=== PATIENT | male | born 1990 | race African-American/Black ===

== ENCOUNTER 2016-10-07 09:24 | Emergency (ER) | payer SELFPAY ==
[~2016-10-07] VITALS: Ht 170.2 cm; Wt 60.0 kg
[2016-10-07 09:26] VITALS: BP 118/71; PULSE 80; RESP 16; TEMP 98.2; O2SAT 98
--- NOTE | 2016-10-07 10:23 | PD ---
HPI Chief Complaint: Injury Time Seen by Provider: 10:05 Travel History International Travel<30 days: No Contact w/Intl Traveler<30days: No Traveled to known affect area: No History of Present Illness HPI 25-year-old Afro-[place]er male presents the emergency department with right sided shoulder which has developed over the last 3 days. 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 The pain is getting the point where his limited range of motion in the right shoulder. He denies weakness or numbness or tingling. Is located in the posterior and lateral shoulder. Patient states no previous shoulder injury in this area. Patient states the pain is 7 out of 10. States it is worse with movement and pressure. He has no known drug allergies. PFSH Past Medical History Asthma: No Autoimmune Disease: No Blood Disorders: No Heart Rhythm Problems: No Cardiovascular Problems: No Chest Pain: No Cystic Fibrosis: No Diminished Hearing: No Genitourinary: No Headaches: No Hypertension: No Musculoskeletal: No Neurologic: No Seizures: No Sickle Cell Disease: No Sleep Apnea: No Past Surgical History Abdominal Surgery: No Cardiac Surgery: No Ear Surgery: No Endocrine Surgery: No Eye Surgery: No Genitourinary Surgery: No Gynecologic Surgery: No Neurologic Surgery: No Oral Surgery: No Thoracic Surgery: No Social History Alcohol Use: No Tobacco Use: Yes Substance Use: No Allergies-Medications (Allergen,Severity, Reaction): Coded Allergies: No Known Allergies (Verified Allergy, Severe, 06/29/04) Reported Meds & Prescriptions Reported Meds & Active Scripts Active Ibuprofen 800 Mg Tab 800 Mg PO Q8H PRN Non-Aspirin Pain Relief ES (Acetaminophen) 500 Mg Tab 1,000 Mg PO Q6HR PRN Review of Systems Except as stated in HPI: all other systems reviewed are Neg General / Constitutional: No: Fever Eyes: No: Visual changes HENT: No: Headaches Cardiovascular: No: Chest Pain or Discomfort Respiratory: No: Shortness of Breath Gastrointestinal: No: Abdominal Pain Genitourinary: No: Dysuria Musculoskeletal: Positive: Myalgias, Limited ROM, Pain Skin: No Rash Neurologic: No: Weakness Psychiatric: No: Depression Endocrine: No: Polydipsia Hematologic/Lymphatic: No: Easy Bruising Physical Exam Narrative GENERAL: Patient appears no acute distress. SKIN: Warm and dry. No color. Normal turgor. No rash. HEAD: Atraumatic. Normocephalic. EYES: Pupils equal and round. No scleral icterus. No injection or drainage. ENT: No nasal bleeding or discharge. Mucous membranes pink and moist. Pharynx is clear. Airway is patent. NECK: Trachea midline. No JVD. CARDIOVASCULAR: Regular rate and rhythm. RESPIRATORY: No accessory muscle use. Clear to auscultation. Breath sounds equal bilaterally. MUSCULOSKELETAL: Extremities without clubbing, cyanosis, or edema. Patient is tenderness with palpation of the right posterior and lateral deltoid region as well as with all ranges of motion of the right shoulder, however no obvious weakness or loss of function. Fusions noted. No deformities are noted. NEUROLOGICAL: Awake and alert. No obvious cranial nerve deficits. Motor grossly within normal limits. Five out of 5 muscle strength in the arms and legs. Normal speech. PSYCHIATRIC: Appropriate mood and affect; insight and judgment normal. Data Data Last Documented VS Vital Signs Date Time Temp Pulse Resp B/P Pulse Ox O2 Delivery O2 Flow Rate FiO2 10/07/16 09:26 98.2 80 16 118/71 98 MDM Medical Decision Making Medical Screen Exam Complete: Yes Emergency Medical Condition: Yes Differential Diagnosis Right shoulder strain. Rotator cuff strain. Rotator cuff tendinitis. Shoulder bursitis. Narrative Course Patient is medically stable at time of exam. Radiographic imaging is not felt warranted at this time based on the history and physical. Patient will be treated with ibuprofen 800 mg 3 times daily with food. Patient also was given acetaminophen 500 mg 2 tabs every 6 hours when necessary pain. Patient is to use Heat followed by ice frequently through the day. Work note is given with restrictions for the next week. Patient to follow-up with his primary care physician or return to the emergency department as needed. Diagnosis Primary Impression: Strain of right shoulder Qualified Code: S46.911A - Strain of right shoulder, initial encounter Referrals: [facility] Primary Care Physician Patient Instructions: Exercises for Internal and External Shoulder Rotation (ED ), Exercises for Shoulder Abduction and Adduction (ED), Exercises for Shoulder Flexion and Extension (ED), General Instructions Departure Forms: Work Release Enter return to work date: Oct 08, 2016 Special Instructions: No lifting greater than 20 pounds, no throwing. No Overhead lifting for the next 7 days. Additional Instructions: Radiographic imaging is not felt warranted at this time based on the history and physical. Patient will be treated with ibuprofen 800 mg 3 times daily with food. Patient also was given acetaminophen 500 mg 2 tabs every 6 hours when necessary pain. Patient is to use Heat followed by ice frequently through the day. Work note is given with restrictions for the next week. Patient to follow-up with his primary care physician or return to the emergency department as needed. Med/Other Pt SpecificInfo: Prescription(s) given Scripts Ibuprofen 800 Mg [id number] Mg PO Q8H PRN (Pain/Inflammation) #30 TAB Prov:Patricia Oswald DO 10/07/16 Acetaminophen (Non-Aspirin Pain Relief ES)500 Mg Tab1,000 Mg PO Q6HR PRN (PAIN) #60 TAB Prov:Patricia Oswald DO 10/07/16 Disposition: 01 DISCHARGE HOME Condition: Stable Darci Castro Oct 07, 2016 10:23
[2016-10-07] MEDS ORDERED: IBUP800T23 PO (10:24)
[2016-10-07] MEDS ORDERED: NON-500T13 PO (10:24)
== END 2016-10-07 10:46 | disposition home or self-care (01) ==
LOC: NEPD 09:24
DX: S46.911A Strain of unspecified muscle, fascia and tendon at shoulder and upper arm level, right arm, initial encounter (principal); X50.9XXA Other and unspecified overexertion or strenuous movements or postures, initial encounter; Z72.0 Tobacco use
CPT/HCPCS: 99283

== ENCOUNTER 2016-10-31 00:19 | Emergency (ER) | payer SELFPAY ==
[~2016-10-31] VITALS: Ht 170.2 cm; Wt 62.0 kg
[~2016-10-31 00:19] MED LIST: IBUP800T23 PO; NON-500T13 PO
[2016-10-31 00:23] VITALS: BP 137/85; PULSE 82; RESP 16; TEMP 98.6; O2SAT 99
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
[2016-10-31] MEDS ORDERED: TETANUS/DIPHTHERIA TOXOID ADULT 0.5 ML VIAL IM ONE (00:45)
[2016-10-31] MEDS ORDERED: LIDOCAINE 1%/EPINEPHrine 1:100,000 SOLN 20 ML VIAL INFIL ONE (00:45)
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
== END 2016-10-31 01:30 | disposition home or self-care (01) ==
LOC: NEPE 00:19
DX: S21.111A Laceration without foreign body of right front wall of thorax without penetration into thoracic cavity, initial encounter (principal); F17.200 Nicotine dependence, unspecified, uncomplicated; Z23 Encounter for immunization; W26.0XXA Contact with knife, initial encounter
CPT/HCPCS: 12002; 90471; 90714

== ENCOUNTER 2016-11-05 15:03 | Emergency (ER) | payer SELFPAY ==
[~2016-11-05] VITALS: Ht 167.6 cm; Wt 65.0 kg
[2016-11-05 15:07] VITALS: BP 121/77; PULSE 80; RESP 14; TEMP 98.2; O2SAT 99
--- NOTE | 2016-11-05 16:26 | PD ---
HPI Chief Complaint: GI Complaint Time Seen by Provider: 16:26 Travel History International Travel<30 days: No Contact w/Intl Traveler<30days: No Traveled to known affect area: No History of Present Illness HPI 26-year-old Afro-Swiss male resents with history of rectal a "lump" with occasional rectal bleeding. Patient states he treated with [id number] cream with improvement of the lump, patient had episode of bright red blood per rectum earlier today with bowel movement. No pain, no abdominal pain, no dizziness or weakness. No previous history of rectal bleeding in the past. She states seem to be getting better but then had episode of bleeding today which is why he came in today. Currently has no pain whatsoever. 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 Patient has no known drug allergies. PFSH Past Medical History Medical History: Denies Significant Hx Asthma: No Autoimmune Disease: No Blood Disorders: No Heart Rhythm Problems: No Cardiovascular Problems: No Chest Pain: No Cystic Fibrosis: No Diminished Hearing: No Gastrointestinal Disorders: No Genitourinary: No Headaches: No Hypertension: No Musculoskeletal: No Neurologic: No Seizures: No Sickle Cell Disease: No Sleep Apnea: No Past Surgical History Surgical History: No Previous Surgery Abdominal Surgery: No Cardiac Surgery: No Ear Surgery: No Endocrine Surgery: No Eye Surgery: No Genitourinary Surgery: No Gynecologic Surgery: No Neurologic Surgery: No Oral Surgery: No Thoracic Surgery: No Other Surgery: No Social History Alcohol Use: No Tobacco Use: Yes (1 ppd) Substance Use: Yes (THC daily) Allergies-Medications (Allergen,Severity, Reaction): Coded Allergies: No Known Allergies (Verified , 10/31/16) Reported Meds & Prescriptions Reported Meds & Active Scripts Active No Active Prescriptions or Reported Medications Review of Systems Except as stated in HPI: all other systems reviewed are Neg General / Constitutional: No: Fever Eyes: No: Visual changes HENT: No: Headaches Cardiovascular: No: Chest Pain or Discomfort Respiratory: No: Shortness of Breath Gastrointestinal: Positive: Other, No: Nausea, Vomiting, Diarrhea, Abdominal Pain, Hematochezia, Constipation Genitourinary: No: Dysuria Musculoskeletal: No: Pain Skin: No Rash Neurologic: No: Weakness Psychiatric: No: Depression Endocrine: No: Polydipsia Hematologic/Lymphatic: No: Easy Bruising Physical Exam Narrative GENERAL: Patient is in no acute distress. SKIN: Warm and dry. Normal color. Normal turgor. HEAD: Atraumatic. Normocephalic. EYES: Pupils equal and round. No scleral icterus. No injection or drainage. ENT: No nasal bleeding or discharge. Mucous membranes pink and moist. NECK: Trachea midline. No JVD. CARDIOVASCULAR: Regular rate and rhythm. RESPIRATORY: No accessory muscle use. Clear to auscultation. Breath sounds equal bilaterally. GASTROINTESTINAL: Abdomen soft, non-tender, nondistended. Hepatic and splenic margins not palpable. RECTAL: Patient is noted to have a skin tag at 6 caught position. There is no fissure. There is no rectal pain. There is no palpable internal hemorrhoid. There is no active bleeding. MUSCULOSKELETAL: Extremities without clubbing, cyanosis, or edema. No obvious deformities. NEUROLOGICAL: Awake and alert. No obvious cranial nerve deficits. Motor grossly within normal limits. Five out of 5 muscle strength in the arms and legs. Normal speech. PSYCHIATRIC: Appropriate mood and affect; insight and judgment normal. Data Data Last Documented VS Vital Signs Date Time Temp Pulse Resp B/P Pulse Ox O2 Delivery O2 Flow Rate FiO2 11/05/16 15:07 98.2 80 14 121/77 99 MDM Medical Decision Making Medical Screen Exam Complete: Yes Emergency Medical Condition: Yes Differential Diagnosis Internal hemorrhoid. External hemorrhoid. Rectal bleeding Narrative Course Patient is medically stable at time of exam. Patient is treated with Anusol rectal suppositories as directed twice a day. # 12. Toileting habits is are discussed as well as stool softeners. Patient to follow local primary care physician as discussed. She can return the emergency Department with worsening symptoms as needed. Diagnosis Primary Impression: Hemorrhoids Qualified Code: K64.9 - Hemorrhoids, unspecified hemorrhoid type Referrals: [facility] Patient Instructions: General Instructions, Hemorrhoids (ED) Additional Instructions: Patient is medically stable at time of exam. Patient is treated with Anusol rectal suppositories as directed twice a day. # 12. Toileting habits is are discussed as well as stool softeners. Patient to follow local primary care physician as discussed. She can return the emergency Department with worsening symptoms as needed. Med/Other Pt SpecificInfo: Prescription(s) given Scripts No Active Prescriptions or Reported Meds Disposition: 01 DISCHARGE HOME Condition: Stable Gloria,Darci F. PA Nov 05, 2016 16:26
[2016-11-05] MEDS ORDERED: ANUC25SU RECTAL (16:44)
== END 2016-11-05 16:47 | disposition home or self-care (01) ==
LOC: NEPD 15:03
DX: K64.9 Unspecified hemorrhoids (principal)
CPT/HCPCS: 99282

== ENCOUNTER 2017-07-31 12:35 | Inpatient (IN) | payer OTHER ==
[~2017-07-31] VITALS: Ht 170.2 cm; Wt 63.5 kg
[~2017-07-31 12:35] MED LIST changes: +ANUC25SU RECTAL; -IBUP800T23 PO; -NON-500T13 PO
[2017-07-31 16:00] VITALS: BP 111/66; PULSE 73; RESP 18; TEMP 98.2; O2SAT 100
[2017-07-31] MEDS: LACTATED RINGER'S 1000 ML INJ 1,000 ML IV SCH (16:07)
[2017-07-31] MEDS ORDERED: diphenhydrAMINE HCL 25 MG CAP PO PRN (16:15)
[2017-07-31] MEDS ORDERED: Post-op Orders (for Pharmacy) XX ONE (16:15)
[2017-07-31] MEDS ORDERED: ACETAMINOPHEN/HYDROcodone 325 MG/10 MG TAB PO ONE (16:15)
[2017-07-31] MEDS ORDERED: KETOROLAC TROMETHAMINE 30 MG/ML (IVP) VIAL IV PUSH ONE (16:15)
[2017-07-31] MEDS ORDERED: HYDROmorphone HCL PF 2 MG/ML VIAL IV ONE (16:15)
[2017-07-31] MEDS: KETOROLAC TROMETHAMINE 30 MG/ML (IVP) VIAL IVP SCH ×2 (16:50→23:54)
[2017-07-31 20:00] VITALS: BP 132/76; PULSE 75; RESP 18; TEMP 98.6; O2SAT 99
[2017-07-31] MEDS: ACETAMINOPHEN/HYDROcodone 325 MG/10 MG TAB PO PRN ×2 (20:40→23:54)
[2017-07-31] MEDS: DOCUSATE SODIUM 50 MG/SENNA 8.6 MG TAB PO SCH (20:40)
[2017-07-31] MEDS ORDERED: LACTATED RINGER'S 1000 ML IV PRN (21:30)
[2017-07-31] MEDS ORDERED: SODIUM CHLORID 0.9% 500 ML IV PRN (21:30)
[2017-07-31] MEDS ORDERED: POVIDONE IODINE 5% (ANTISEPSIS KIT) 4 APPLICATIONS EACH NARE PRN (21:45)
[2017-07-31] MEDS ORDERED: METOPROLOL TARTRATE 25 MG TAB PO PRN (21:45)
[2017-07-31] MEDS: HYDROmorphone HCL PF 2 MG/ML VIAL IV PUSH PRN (21:45)
[2017-07-31] MEDS ORDERED: CHLORHEXIDINE GLUCONATE 2 % 1 PACK (2 CLOTHS) TOPICAL PRN (21:45)
[2017-08-01] VITALS: BP 118/73; PULSE 60; RESP 18; TEMP 98.3; O2SAT 99
[2017-08-01] MEDS: LACTATED RINGER'S 1000 ML INJ 1,000 ML IV SCH ×3 (02:19→20:40)
[2017-08-01] MEDS: ACETAMINOPHEN/HYDROcodone 325 MG/10 MG TAB PO PRN ×3 (03:53→20:38)
[2017-08-01 04:00] VITALS: BP 149/82; PULSE 70; RESP 18; TEMP 98.3; O2SAT 100
[2017-08-01] MEDS: KETOROLAC TROMETHAMINE 30 MG/ML (IVP) VIAL IVP SCH ×4 (05:42→23:12)
[2017-08-01] MEDS: HYDROmorphone HCL PF 2 MG/ML VIAL IV PUSH PRN ×3 (05:42→21:48)
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
[2017-08-01 07:03] LABS: HEMATOCRIT 30.5 % (39.0-51.0); HEMOGLOBIN 10.5 GM/DL (13.0-17.0)
[2017-08-01 08:00] VITALS: BP 117/80; PULSE 83; RESP 18; TEMP 98.5; O2SAT 100
[2017-08-01] MEDS: DOCUSATE SODIUM 50 MG/SENNA 8.6 MG TAB PO SCH ×2 (09:25→20:38)
[2017-08-01 12:00] VITALS: BP 138/93; PULSE 74; RESP 18; TEMP 98.5; O2SAT 100
[2017-08-01 16:00] VITALS: BP 142/91; PULSE 65; RESP 18; TEMP 97.9; O2SAT 99
[2017-08-01] MEDS: ONDANSETRON HCL 4 MG/2 ML VIAL IVP PRN (18:34)
[2017-08-01 19:50] VITALS: BP 129/86; PULSE 67; RESP 18; TEMP 98.4; O2SAT 97
[2017-08-02] VITALS: BP 123/72; PULSE 70; RESP 18; TEMP 98; O2SAT 99
[2017-08-02] MEDS: ACETAMINOPHEN/HYDROcodone 325 MG/10 MG TAB PO PRN ×5 (00:24→16:49)
[2017-08-02] MEDS ORDERED: LACTULOSE SYRUP 20 GM/30 ML CUP PO PRN (02:00)
[2017-08-02] MEDS ORDERED: BISACODYL 10 MG SUPP RECTAL PRN (02:00)
[2017-08-02] MEDS ORDERED: SENNOSIDES 8.6 MG TAB PO PRN (02:00)
[2017-08-02 04:00] VITALS: BP 132/92; PULSE 81; RESP 18; TEMP 98.6; O2SAT 99
[2017-08-02] MEDS: HYDROmorphone HCL PF 2 MG/ML VIAL IV PUSH PRN ×4 (05:15→21:40)
[2017-08-02] MEDS: ONDANSETRON HCL 4 MG/2 ML VIAL IVP PRN ×4 (05:16→21:39)
[2017-08-02 08:14] VITALS: BP 123/72; PULSE 83; RESP 18; TEMP 98.5; O2SAT 99
[2017-08-02] MEDS: MAGNESIUM HYDROXIDE SUSP 30 ML CUP PO SCH ×2 (08:21→21:40)
[2017-08-02] MEDS: DOCUSATE SODIUM 50 MG/SENNA 8.6 MG TAB PO SCH ×2 (08:21→21:40)
--- NOTE | 2017-08-02 11:19 | PD.ORT.PN ---
Subjective Subjective Remarks Resting comfortably with no new complaint Objective Vitals Vital Signs Date Time Temp Pulse Resp B/P (MAP) Pulse Ox O2 Delivery O2 Flow Rate FiO2 08/02/17 10:10 18 08/02/17 09:21 18 08/02/17 08:14 98.5 83 18 123/72 (89) 99 08/02/17 04:00 98.6 81 18 132/92 (105) 99 08/02/17 00:00 98.0 70 18 123/72 (89) 99 08/01/17 19:50 98.4 67 18 129/86 (100) 97 08/01/17 16:00 97.9 65 18 142/91 (108) 99 08/01/17 12:40 20 08/01/17 12:00 98.5 74 18 138/93 (108) 100 I/O 08/01/17 08/01/17 08/01/17 08/02/17 08/02/17 08/02/17 07:00 15:00 23:00 07:00 15:00 23:00 Intake Total 300 ml 960 ml 200 ml Balance 300 ml 960 ml 200 ml Intake Oral 300 ml 960 ml 200 ml # Voids 2 3 # Bowel Movements 0 0 Result Diagram: 08/01/17 0635 Objective Remarks RLE: 2+ swelling of lower leg. compartments soft. External fixation in place. pin sites clean. NVI distally with good motion of toes and ankle. Assessment & Plan Assessment and Plan 1) Right Tibial Plateau Fx s/p exfix POD 2 -NWB -elevate -ice -pin care BID -toradol N.p.o. after midnight. We will plan on possible surgery tomorrow if swelling is continuing to improve Brant Horne Jr. August 02, 2017 11:19
[2017-08-02 11:43] VITALS: BP 135/71; PULSE 63; RESP 18; TEMP 98.8; O2SAT 98
[2017-08-02 16:00] VITALS: BP 127/84; PULSE 100; RESP 18; TEMP 98.4; O2SAT 100
[2017-08-02] MEDS: LACTATED RINGER'S 1000 ML INJ 1,000 ML IV SCH (16:00)
[2017-08-02 20:15] VITALS: BP 125/77; PULSE 65; RESP 16; TEMP 98.6; O2SAT 99
[2017-08-03 00:15] VITALS: BP 117/68; PULSE 72; RESP 16; TEMP 98.3; O2SAT 100
[2017-08-03] MEDS: ONDANSETRON HCL 4 MG/2 ML VIAL IVP PRN ×3 (01:10→20:51)
[2017-08-03] MEDS: ACETAMINOPHEN/HYDROcodone 325 MG/10 MG TAB PO PRN ×3 (01:11→16:47)
[2017-08-03 04:50] VITALS: BP 134/76; PULSE 72; RESP 16; TEMP 98.2; O2SAT 97
[2017-08-03] MEDS: HYDROmorphone HCL PF 2 MG/ML VIAL IV PUSH PRN ×3 (04:54→20:52)
[2017-08-03] MEDS: LACTATED RINGER'S 1000 ML INJ 1,000 ML IV SCH ×2 (06:37→16:00)
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
[2017-08-03] MEDS ORDERED: XARE10TA PO (06:53)
[2017-08-03] MEDS ORDERED: HYDR-3583 PO (06:53)
[2017-08-03] MEDS ORDERED: WALKER/ADULT/FO1 MIS (06:53)
[2017-08-03 06:55] LABS: AUTOMATED NEUTROPHIL # 3.1 TH/MM3 (1.8-7.7); BASOPHIL % 0.6 % (0.0-2.0); EOSINOPHIL # 0.5 TH/MM3 (0-0.4); HEMOGLOBIN 11.3 GM/DL (13.0-17.0); LYMPH % 32.1 % (9.0-44.0); LYMPHOCYTE # 2.1 TH/MM3 (1.0-4.8); MEAN CELL VOLUME 89.9 FL (80.0-100.0); MEAN CORPUSCULAR HEMOGLOBIN 30.7 PG (27.0-34.0); MEAN CORPUSCULAR HGB CONC 34.2 % (32.0-36.0); MEAN PLATELET VOLUME 8.4 FL (7.0-11.0); MONO % 11.3 % (0.0-8.0); MONOCYTE # 0.7 TH/MM3 (0-0.9); PLATELET COUNT 193 TH/MM3 (150-450); RED BLOOD COUNT 3.67 MIL/MM3 (4.50-5.90); RED CELL DISTRIBUTION WIDTH 13.7 % (11.6-17.2); WHITE BLOOD COUNT 6.4 TH/MM3 (4.0-11.0)
[2017-08-03 07:04] LABS: INTERNATIONAL NORMALIZED RATIO 1.1 RATIO; PROTHROMBIN TIME - PATIENT 11.3 SEC (9.8-11.6)
[2017-08-03 07:16] LABS: BICARBONATE 30.2 MEQ/L (21.0-32.0); CREATININE 1.1 MG/DL (0.60-1.30)
[2017-08-03] MEDS: MAGNESIUM HYDROXIDE SUSP 30 ML CUP PO SCH ×2 (07:56→22:47)
[2017-08-03] MEDS: DOCUSATE SODIUM 50 MG/SENNA 8.6 MG TAB PO SCH ×2 (07:57→22:47)
[2017-08-03 08:00] VITALS: BP 133/75; PULSE 65; RESP 16; TEMP 98.5; O2SAT 99
[2017-08-03] MEDS ORDERED: ceFAZolin INJ 1,000 MG VIAL ONE (11:54)
[2017-08-03] MEDS ORDERED: VANCOMYCIN HCL 1000 MG VIAL ONE (11:54)
[2017-08-03] MEDS ORDERED: GENTAMICIN SULFATE 80 MG/2 ML VIAL ONE (11:54)
[2017-08-03] MEDS ORDERED: LIDOCAINE HCL 1% PF 5 ML SYRINGE OTHER ONE (13:11)
[2017-08-03] MEDS ORDERED: PHENYLEPH/NS 1000 MCG/10 ML SYR IV ONE (13:11)
[2017-08-03] MEDS ORDERED: DEXAMETHASONE SOD PHOS 4 MG/ML VIAL IV ONE (13:11)
[2017-08-03] MEDS ORDERED: KETOROLAC TROMETHAMINE 30 MG/ML (IVP) VIAL IV PUSH ONE (13:11)
[2017-08-03] MEDS ORDERED: LACTATED RINGER'S 1000 ML INJ 3,000 ML IV ONE (13:11)
[2017-08-03] MEDS ORDERED: PROPOFOL 200 MG/20 ML AMP IV ONE (13:11)
[2017-08-03] MEDS ORDERED: NEOSTIGMINE 5 MG/5 ML SYRINGE IV PUSH ONE (13:11)
[2017-08-03] MEDS ORDERED: ONDANSETRON HCL 4 MG/2 ML VIAL IV ONE (13:11)
[2017-08-03] MEDS ORDERED: GLYCOPYRROLATE 1 MG/5 ML SYRINGE IV PUSH ONE (13:11)
[2017-08-03] MEDS ORDERED: ROCURONIUM INJ 50 MG/5 ML SYRINGE IV PUSH ONE (13:11)
[2017-08-03] MEDS ORDERED: MIDAZOLAM HCL 2 MG/2 ML VIAL ONE (14:54)
--- NOTE | 2017-08-03 15:25 | PD.OP ---
cc: Kamran Vines MD Operative Report Date of Surgery: August 03, 2017 Preoperative Diagnosis: Comminuted right bicondylar tibial plateau fracture Postoperative Diagnosis: Procedure: Open reduction internal fixation right bicondylar tibial plateau fracture, removal of external fixation Anesthesia: General Surgeon: Kamran Vines Zoning Administrator(s): TRAE Zapata PA-C The surgical procedure was assisted by my physician social media assistant. My P.A. presence was necessary throughout this case for the manipulation and positioning of the surgical extremity. My P.A. was assisting me throughout the duration of this procedure. The skill set of a physician social media assistant was medically necessary to complete this procedure. During the surgical case the ophthalmic surgical assistant was working at the back table and the physician social media assistant was directly assisting me. Operation and Findings: Implants used: Synthes Plan of activity: Nonweightbearing Details of procedure: This patient was seen and evaluated preoperatively. Patient sustained an injury resulting a bicondylar right tibial plateau fracture. Informed consent was obtained preoperatively after detailed discussion of the risks and benefits of surgery. Risk of surgery including bleeding, infection, nonunion, painful hardware, stiffness, loss of motion, arthritis, need for knee replacement, as well as medical complications including blood clots, stroke, heart attack, and were discussed. I also discussed the possibility of using allograft bone graft . Preoperatively the operative site was marked. Patient was brought to the operating room and placed on the operating room table. Intravenous sedation and general endotracheal anesthesia were administered. IV antibiotics were given and a time out procedure was preformed. Procedure began with removal of the external fixator. Clamps were loosened. Bars and clamps were now removed. The pins were left in place. Next,the operative leg was prepped with alcohol followed by Hibiclens and draped in the usual sterile fashion. Attention was now turned towards the medial tibial plateau. A 6 inch incision was made over the posterior medial aspect of the tibial plateau. Saphenous vein was protected. The PES insertion was elevated to expose the posterior medial tibial plateau. Fracture was visualized. Attention was now turned toward reduction. Traction was applied. Fracture was manipulated. Fracture keyed in excellent alignment. A fracture tenaculum was used to compress fracture. K wires were used for provisional fixation. Fluoroscopy confirmed excellent alignment of fracture. Two 3.5 cortical lag screws were placed from anterior to posterior. Good compression was obtained. A Synthes plate was now placed along the posterior medial tibial plateau. Plate was provisionally held to bone with K wires. Fluoroscopy confirmed plate placement. 3.5 cortical screws were used to compress plate to bone. Additional locking screws were placed proximally. Next a 4-inch curvilinear incision over the anterolateral knee. Subcutaneous tissue was treated with Bovie. Iliotibial band was split in line with fibers. A sub-meniscal arthrotomy was created and the lateral articular surface was visualized. There was significant comminution and depression of the articular surface. A window was made in the metaphyseal region and bone tamps used to elevate the articular surface. Articular surface reduced into excellent alignment. K-wires were used for provisional fixation. At this point cancellous bone graft was packed under the articular surface using a bone tamp. The cortical fragments were now reduced. Fluoroscopy revealed excellent alignment of fracture. A Synthes one third tubular plate was contoured to fit the proximal tibia. A periarticular clamp was used to compress the medial and lateral plateau fragments. The plate was provisionally held with K-wires. 3.5 cortical screws were used compress plate to the tibia. K-wires were removed. Final fluoroscopy showed excellent alignment of fracture with well-placed hardware. The incision was thoroughly irrigated. Attention was now returned back to the medial plate. Additional locking screws were placed proximally within the plate. All screws were predrilled and premeasured for appropriate length. Incisions were thoroughly irrigated. Attention was now turned to closure. Fascia and iliotibial band were closed with #1 Vicryl,. Subcutaneous tissues closed with 3-0 Vicryl and skin was closed with akshat. Sterile dressings were applied. The patient was transferred to recovery in stable condition. Kamran Vines MD August 03, 2017 15:25
[2017-08-03] MEDS ORDERED: Post-op Orders (for Pharmacy) XX ONE (15:30)
[2017-08-03] MEDS ORDERED: NURSING INFORMATION XX PRN (15:30)
[2017-08-03] MEDS ORDERED: NALOXONE HCL 0.4 MG/ML AMP IV PUSH PRN (15:30)
[2017-08-03] MEDS ORDERED: *MEPERIDINE 25 MG INJ VIAL PERIprocedural Use ONLY ONE (15:47)
[2017-08-03] MEDS ORDERED: ACETAMINOPHEN 1000 MG/100 ML 100 ML IV ONE (15:50)
[2017-08-03] MEDS ORDERED: DO NOT ADM ANY ANTICOAGULANT DRUGS PRN (15:50)
[2017-08-03] MEDS ORDERED: *HYDROmorphone PF 0.5 MG/0.5 ML PERIprocedure ONLY ONE ×2 (15:57→16:02)
[2017-08-03 16:00] VITALS: BP 146/93; PULSE 96; RESP 16; TEMP 98.1; O2SAT 100
[2017-08-03] MEDS ORDERED: ERGOCALCIFEROL (VIT D2) 50,000 UNIT CAP PO SCH (16:00)
[2017-08-03] MEDS ORDERED: HYDROmorphone HCL PF 0.5 MG/0.5 ML SYRINGE IV ONE (16:05)
--- NOTE | 2017-08-03 16:27 | RADRPT ---
EXAM DATE/TIME: 08/03/2017 14:57 [place] COMPARISON: No previous studies available for comparison. INDICATIONS : Right tibial plataeu. MEDICAL HISTORY : None. SURGICAL HISTORY : None. ENCOUNTER: Subsequent ACUITY: 1 day PAIN SCORE: Non-responsive. LOCATION: Right Tibia. FINDINGS: Plate with screws is seen bridging the tibial plateau fracture. Alignment is anatomic. CONCLUSION: Anatomic alignment with plate and screws in place. Navin Villanueva MD FACR on August 03, 2017 at 16:24 Board Certified Radiologist. This report was verified electronically.
[2017-08-03] MEDS: CALCIUM/VITAMIN D 250 MG/125 U TAB PO SCH (16:47)
[2017-08-03 20:00] VITALS: BP 148/84; PULSE 80; RESP 19; TEMP 98.6; O2SAT 100
[2017-08-03] MEDS: ceFAZolin 2 GM PREMIX 50 ML IV SCH (22:05)
[2017-08-04] VITALS: BP 138/82; PULSE 64; RESP 18; TEMP 97.5; O2SAT 100
[2017-08-04] MEDS: HYDROmorphone HCL PF 2 MG/ML VIAL IV PUSH PRN ×7 (01:05→20:13)
[2017-08-04] MEDS: VANCOMYCIN INJ 1,000 MG in SODIUM CHLOR 0.9% 250 ML INJ 250 ML IV SCH ×2 (01:06→13:16)
[2017-08-04] MEDS: LACTATED RINGER'S 1000 ML INJ 1,000 ML IV SCH ×2 (03:47→16:17)
[2017-08-04 04:00] VITALS: BP 135/66; PULSE 80; RESP 16; TEMP 98.4; O2SAT 100
[2017-08-04] MEDS: ACETAMINOPHEN/HYDROcodone 325 MG/10 MG TAB PO PRN ×6 (05:26→21:43)
[2017-08-04] MEDS: ceFAZolin 2 GM PREMIX 50 ML IV SCH ×3 (05:30→20:10)
[2017-08-04 07:03] LABS: HEMATOCRIT 25.5 % (39.0-51.0); HEMOGLOBIN 8.9 GM/DL (13.0-17.0)
--- NOTE | 2017-08-04 07:13 | PD.ORT.PN ---
Subjective Subjective Remarks POD 1 s/p removal of exfix with ORIF of right tibial plateau reports significant pain yesterday and overnight. Objective Vitals Vital Signs Date Time Temp Pulse Resp B/P (MAP) Pulse Ox O2 Delivery O2 Flow Rate FiO2 08/04/17 04:00 98.4 80 16 135/66 (89) 100 08/04/17 00:00 97.5 64 18 138/82 (100) 100 08/03/17 20:00 98.6 80 19 148/84 (105) 100 08/03/17 17:17 15 08/03/17 17:17 15 08/03/17 16:40 82 16 149/84 (105) 100 Nasal Cannula 2 08/03/17 16:30 86 16 159/81 (107) 100 Nasal Cannula 2 08/03/17 16:15 80 16 153/83 (106) 100 Nasal Cannula 2 08/03/17 16:00 98.1 96 16 146/93 (110) 100 08/03/17 16:00 81 16 153/91 (111) 100 Nasal Cannula 2 08/03/17 15:47 97.4 90 16 167/79 (108) 99 Nasal Cannula 2 08/03/17 08:00 98.5 65 16 133/75 (94) 99 08/03/17 07:55 16 I/O 08/03/17 08/03/17 08/03/17 08/04/17 08/04/17 08/04/17 07:00 15:00 23:00 07:00 15:00 23:00 Intake Total 360 ml 2200 ml Output Total 200 ml 250 ml Balance 360 ml -200 ml 1950 ml Intake Oral 360 ml Other 2200 ml Output Urine Total 200 ml Estimated Blood Loss 250 ml # Voids 3 # Bowel Movements 0 Result Diagram: 08/04/17 0634 08/03/17 0527 Objective Remarks RLE: 1+ swelling of lower leg. compartments soft. dressings clean and dry. intact. NVI Assessment & Plan Assessment and Plan 1) Right Tibial Plateau Fx s/p removal of exfix with ORIF - POD 1 -NWB -no quad sets or leg lifts -DVT prophylaxis -pain control -daily dressing changes POD 2 -f/u with Jasmyn or PA in 2 weeks Ulisses Meneses/Renderer PA August 04, 2017 07:13
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
[2017-08-04 08:00] VITALS: BP 135/80; PULSE 78; RESP 16; TEMP 98.7; O2SAT 100
[2017-08-04] MEDS: MAGNESIUM HYDROXIDE SUSP 30 ML CUP PO SCH ×2 (09:00→20:10)
[2017-08-04] MEDS: DOCUSATE SODIUM 50 MG/SENNA 8.6 MG TAB PO SCH ×2 (09:16→20:10)
[2017-08-04] MEDS: CHOLECALCIFEROL (VIT D3) 1000 UNIT TAB PO SCH (09:17)
[2017-08-04] MEDS: CALCIUM/VITAMIN D 250 MG/125 U TAB PO SCH ×3 (09:17→17:27)
[2017-08-04 12:00] VITALS: BP 149/77; PULSE 78; RESP 16; TEMP 98.4; O2SAT 100
[2017-08-04] MEDS ORDERED: KETOROLAC TROMETHAMINE 60 MG/2 ML (IM) VIAL IM SCH (14:30)
[2017-08-04] MEDS: ENOXAPARIN SODIUM 40 MG/0.4 ML SYRINGE SQ SCH (15:26)
[2017-08-04 16:00] VITALS: BP 143/84; PULSE 75; RESP 16; TEMP 98.6; O2SAT 100
[2017-08-04 20:00] VITALS: BP 126/77; PULSE 62; RESP 19; TEMP 98.7; O2SAT 100
[2017-08-05] VITALS: BP 125/76; PULSE 69; RESP 19; TEMP 98.6; O2SAT 100
[2017-08-05] MEDS: VANCOMYCIN INJ 1,000 MG in SODIUM CHLOR 0.9% 250 ML INJ 250 ML IV SCH (01:24)
[2017-08-05] MEDS: KETOROLAC TROMETHAMINE 60 MG/2 ML (IM) VIAL IM SCH ×3 (01:27→11:50)
[2017-08-05] MEDS: ENOXAPARIN SODIUM 40 MG/0.4 ML SYRINGE SQ SCH (03:00)
[2017-08-05 04:00] VITALS: BP 129/74; PULSE 67; RESP 19; TEMP 98.6; O2SAT 100
[2017-08-05] MEDS: HYDROmorphone HCL PF 2 MG/ML VIAL IV PUSH PRN ×6 (04:21→22:03)
[2017-08-05] MEDS: ceFAZolin 2 GM PREMIX 50 ML IV SCH ×2 (04:24→14:11)
[2017-08-05] MEDS: LACTATED RINGER'S 1000 ML INJ 1,000 ML IV SCH ×2 (04:47→17:17)
[2017-08-05] MEDS: BACITRACIN TOP OINT 15 GM TUBE TOPICAL SCH (05:21)
[2017-08-05] MEDS: ACETAMINOPHEN/HYDROcodone 325 MG/10 MG TAB PO PRN ×5 (05:24→21:15)
--- NOTE | 2017-08-05 07:09 | PD.ORT.PN ---
Subjective Subjective Remarks POD 2 s/p removal of exfix with ORIF of right tibial plateau reports pain but better controlled. did not use walker much yesterday Objective Vitals Vital Signs Date Time Temp Pulse Resp B/P (MAP) Pulse Ox O2 Delivery O2 Flow Rate FiO2 08/05/17 04:00 98.6 67 19 129/74 (92) 100 08/05/17 00:00 98.6 69 19 125/76 (92) 100 08/04/17 20:00 98.7 62 19 126/77 (93) 100 08/04/17 18:35 18 08/04/17 16:26 18 08/04/17 16:00 98.6 75 16 143/84 (103) 100 08/04/17 13:45 18 08/04/17 12:00 98.4 78 16 149/77 (101) 100 08/04/17 08:00 98.7 78 16 135/80 (98) 100 I/O 08/04/17 08/04/17 08/04/17 08/05/17 08/05/17 08/05/17 06:59 14:59 22:59 06:59 14:59 22:59 Intake Total 360 ml 840 ml 730 ml Output Total 2000 ml 1200 ml 500 ml Balance -1640 ml -360 ml 230 ml Intake Oral 360 ml 840 ml 480 ml IV Total 250 ml Output Urine Total 2000 ml 1200 ml 500 ml # Voids 0 # Bowel Movements 0 0 0 Result Diagram: 08/04/17 0634 08/03/17 0527 Objective Remarks RLE: 1+ swelling of lower leg. compartments soft. dressings clean and dry. intact. NVI Assessment & Plan Assessment and Plan 1) Right Tibial Plateau Fx s/p removal of exfix with ORIF - POD 2 -NWB -no quad sets or leg lifts -DVT prophylaxis -pain control -daily dressing changes -PROM 0-90deg -use walker today and work on ambulation for hopeful DC home tomorrow -patient refuses Sub Q lovenox. will switch to PO xarelto today -f/u with Jasmyn or PA in 2 weeks Ulisses Meneses/Aircraft Technician PA August 05, 2017 07:09
[2017-08-05] MEDS: MAGNESIUM HYDROXIDE SUSP 30 ML CUP PO SCH ×2 (07:42→22:03)
[2017-08-05] MEDS: CALCIUM/VITAMIN D 250 MG/125 U TAB PO SCH ×3 (07:42→17:21)
[2017-08-05] MEDS: CHOLECALCIFEROL (VIT D3) 1000 UNIT TAB PO SCH (07:42)
[2017-08-05] MEDS: DOCUSATE SODIUM 50 MG/SENNA 8.6 MG TAB PO SCH ×2 (07:42→22:03)
[2017-08-05 08:00] VITALS: BP 120/78; PULSE 85; RESP 16; TEMP 98.3; O2SAT 93
[2017-08-05] MEDS ORDERED: RIVAROXABAN 10 MG TAB PO SCH (09:00)
[2017-08-05] MEDS ORDERED: XARE20TA PO (11:42)
[2017-08-05 12:00] VITALS: BP 122/68; PULSE 75; RESP 16; TEMP 98; O2SAT 96
[2017-08-05 16:00] VITALS: BP 123/77; PULSE 84; RESP 16; TEMP 98.5; O2SAT 97
[2017-08-05 20:00] VITALS: BP 128/80; PULSE 73; RESP 20; TEMP 99.1; O2SAT 100
[2017-08-06] VITALS: BP 141/70; PULSE 76; RESP 19; TEMP 98; O2SAT 99
[2017-08-06] MEDS: ACETAMINOPHEN/HYDROcodone 325 MG/10 MG TAB PO PRN ×3 (00:39→07:56)
[2017-08-06] MEDS: HYDROmorphone HCL PF 2 MG/ML VIAL IV PUSH PRN ×4 (02:16→12:12)
[2017-08-06] MEDS: LACTATED RINGER'S 1000 ML INJ 1,000 ML IV SCH (05:11)
--- NOTE | 2017-08-06 06:56 | PD.ORT.PN ---
Subjective Subjective Remarks POD 3 s/p removal of exfix with ORIF of right tibial plateau pain controlled. no new complaints. ambulating well with walker Objective Vitals Vital Signs Date Time Temp Pulse Resp B/P (MAP) Pulse Ox O2 Delivery O2 Flow Rate FiO2 08/06/17 06:05 18 08/06/17 05:11 18 08/06/17 00:00 98.0 76 19 141/70 (93) 99 08/05/17 23:22 Room Air 08/05/17 20:00 99.1 73 20 128/80 (96) 100 08/05/17 16:00 98.5 84 16 123/77 (92) 97 08/05/17 12:00 98.0 75 16 122/68 (86) 96 08/05/17 08:00 98.3 85 16 120/78 (92) 93 08/05/17 07:45 18 I/O 08/05/17 08/05/17 08/05/17 08/06/17 08/06/17 08/06/17 07:00 15:00 23:00 07:00 15:00 23:00 Intake Total 730 ml 50 ml 800 ml 480 ml Output Total 500 ml 450 ml 1400 ml Balance 230 ml -400 ml -600 ml 480 ml Intake Oral 480 ml 800 ml 480 ml IV Total 250 ml 50 ml Output Urine Total 500 ml 450 ml 1400 ml # Voids 2 # Bowel Movements 0 Result Diagram: 08/04/17 0634 08/03/17 0527 Objective Remarks RLE: 1+ swelling of lower leg. compartments soft. dressings clean and dry. intact. NVI Assessment & Plan Assessment and Plan 1) Right Tibial Plateau Fx s/p removal of exfix with ORIF - POD 3 -NWB -no quad sets or leg lifts -DVT prophylaxis -pain control -daily dressing changes -PROM 0-90deg -use walker today and work on ambulation -DC home with [facility] today -f/u with Jasmyn or PA in 2 weeks Ulisses Meneses/Repossession Agent PA August 06, 2017 06:56
--- NOTE | 2017-08-06 06:57 | HHI.FF ---
Face to Face Verification Diagnosis: (1) Tibial plateau fracture, right Physical Therapy Gait training, Safety evaluation Knee: Knee fracture, Protocol: Right, Non weight bearing Canvas Knee Splint: Remove only with PT Right LE Weight Bearing: Non WB, No Strengthening, No Quad Sets Right LE Range of Motion: Passive ROM (0-90deg) Nursing Dressing Changes: Daily dressing change, Xeroform, Coverderm/Primapore I have seen patient Trell Carbajal on 08/06/17. My clinical findings support the need for the requested home health care services because: Ltd mobility - disease progression I certify that my clinical findings support that this patient is homebound because: Post-op weakness Ulisses Meneses/Modern Languages Professor PA August 06, 2017 06:57
[2017-08-06] MEDS ORDERED: WHEEMIS3 (06:59)
[2017-08-06 07:26] VITALS: BP 170/79; PULSE 110; RESP 18; TEMP 97.2; O2SAT 100
[2017-08-06] MEDS: DOCUSATE SODIUM 50 MG/SENNA 8.6 MG TAB PO SCH (07:55)
[2017-08-06] MEDS: CHOLECALCIFEROL (VIT D3) 1000 UNIT TAB PO SCH (07:56)
[2017-08-06] MEDS: CALCIUM/VITAMIN D 250 MG/125 U TAB PO SCH ×2 (07:56→12:19)
[2017-08-06] MEDS: MAGNESIUM HYDROXIDE SUSP 30 ML CUP PO SCH (08:01)
[2017-08-06] MEDS: BACITRACIN TOP OINT 15 GM TUBE TOPICAL SCH (08:03)
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
[2017-08-06] MEDS ORDERED: RIVAROXABAN 20 MG TAB PO SCH (09:00)
[2017-08-06] MEDS ORDERED: RIVAROXABAN 10 MG TAB PO SCH (09:00)
[2017-08-06 11:21] VITALS: BP 121/71; PULSE 86; RESP 18; TEMP 98; O2SAT 100
== END 2017-08-06 13:12 | disposition home health service (06) | DRG 494 ==
LOC: N06B 12:35 → OBSVTOIN 08-02 15:37
PROVIDERS: ADMIT Orthopaedic Surgery Orthopaedic Trauma; ATTEND Orthopaedic Surgery Orthopaedic Trauma
PROC: 0QSG04Z Reposition Right Tibia with Internal Fixation Device, Open Approach (ICD-10-PCS; principal; 2017-08-03 12:59)
DX: S82.141A Displaced bicondylar fracture of right tibia, initial encounter for closed fracture (principal); V86.56XA Driver of dirt bike or motor/cross bike injured in nontraffic accident, initial encounter
CPT/HCPCS: 73590; 76000; 80048; 85014; 85018; 85025; 85610; 85730; 94150; C1713; E0113; J0131; J0690; J1100; J1170; J1580; J1650; J1885; J2175; J2250; J2370; J2405; J2710; J3010; J3370; J7050; J7120; L1830

== ENCOUNTER 2017-08-09 02:25 | Emergency (ER) | payer OTHER ==
[~2017-08-09 02:25] MED LIST changes: +HYDR-3583 PO; +WALKER/ADULT/FO1 MIS; +WHEEMIS3; +XARE10TA PO
[2017-08-09 02:28] VITALS: BP 123/80; PULSE 93; RESP 20; TEMP 98.3; O2SAT 100
[2017-08-09] MEDS ORDERED: oxyCODONE/ACETAMINOPHEN 10 MG/325 MG TAB PO ONE (03:00)
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
== END 2017-08-09 03:22 | disposition home or self-care (01) ==
LOC: NEPD 02:25
DX: S82.141D Displaced bicondylar fracture of right tibia, subsequent encounter for closed fracture with routine healing (principal); G89.18 Other acute postprocedural pain; X58.XXXD Exposure to other specified factors, subsequent encounter; Z88.5 Allergy status to narcotic agent; Z88.8 Allergy status to other drugs, medicaments and biological substances; Z79.899 Other long term (current) drug therapy
CPT/HCPCS: 99283

== ENCOUNTER 2017-08-14 07:15 | Emergency (ER) | payer OTHER ==
[~2017-08-14] VITALS: Ht 167.6 cm; Wt 62.0 kg
[2017-08-14 07:25] VITALS: BP 120/70; PULSE 111; RESP 22; TEMP 98.8; O2SAT 100
[2017-08-14] MEDS ORDERED: SODIUM CHLORID 0.9% 500 ML INJ 500 ML IV ONE (07:45)
[2017-08-14] MEDS ORDERED: HYDROmorphone HCL PF 1 MG/ML VIAL IV PUSH ONE (07:45)
[2017-08-14] MEDS ORDERED: METOCLOPRAMIDE HCL 10 MG/2 ML VIAL IV PUSH ONE (07:45)
--- NOTE | 2017-08-14 07:49 | PD ---
HPI Chief Complaint: Pain: Acute or Chronic Time Seen by Provider: 07:28 Travel History International Travel<30 days: No Contact w/Intl Traveler<30days: No Traveled to known affect area: No History of Present Illness HPI The patient is a 26-year-old -[place] male who presents to the emergency department for right leg pain located over the right knee, a postoperative site from previous surgery. The patient had previous surgery on the right knee, performed earlier this month by Dr. Ross. The patient was discharged home on pain medications and was wheelchair-bound. The patient has been keeping the leg mostly straight, does do range of motion exercises once a day per his report. The patient was seen in the emergency department several days ago for the right leg pain, was advised to follow-up with Dr. Ross. The patient went to Dr. Ross's office yesterday for his appointment, however, they state his appointment was for next Sunday. He continues to have pain located over the right knee mostly over the lateral medial to inferior aspect. He does note mild swelling as well as a small amount of bleeding from the lateral incision or akshat are in place. He denies any fever, chills, or sweats. He denies any acute trauma to the knee postoperatively. Symptoms are moderate. PFSH Past Medical History Asthma: No Autoimmune Disease: No Blood Disorders: No Heart Rhythm Problems: No Cancer: No Cardiovascular Problems: No Chest Pain: No Cystic Fibrosis: No Diminished Hearing: No Endocrine: No Gastrointestinal Disorders: No Genitourinary: No Headaches: No Hypertension: No Immune Disorder: No Musculoskeletal: No Neurologic: No Psychiatric: No Reproductive: No Respiratory: Yes Seizures: No Sickle Cell Disease: No Sleep Apnea: No ?: Not Past Surgical History Abdominal Surgery: No Cardiac Surgery: No Ear Surgery: No Endocrine Surgery: No Eye Surgery: No Genitourinary Surgery: No Gynecologic Surgery: No Neurologic Surgery: No Oral Surgery: No Thoracic Surgery: No Other Surgery: Yes Social History Alcohol Use: No Tobacco Use: No Substance Use: No Allergies-Medications (Allergen,Severity, Reaction): Coded Allergies: morphine (Verified Allergy, Severe, 08/14/17) bismuth subsalicylate (Verified Allergy, Intermediate, 08/14/17) Reported Meds & Prescriptions Reported Meds & Active Scripts Active Wheelchair Elevated Leg (Device) 1 Mis Mis Ea .XX DIRECTED Xarelto (Rivaroxaban) 10 Mg Tab 10 Mg PO DAILY Hydrocodone-Acetaminophen 10-325 mg Tab 1 Tab PO Q4H PRN Walker/Adult/Folding (Device) 1 Mis Mis Ea .XX DIRECTED Review of Systems Except as stated in HPI: all other systems reviewed are Neg General / Constitutional: No: Fever Musculoskeletal: Positive: Limited ROM, Edema, Pain Skin: Positive Other (Small amount of oozing from the lateral incision site.), No Rash Neurologic: No: Paresthesia, Sensory Disturbance Physical Exam Narrative GENERAL: Awake, alert, very pleasant 26-year-old male who appears his stated age and is in no acute respiratory distress. SKIN: Focused skin assessment warm/dry. HEAD: Atraumatic. Normocephalic. EYES: No injection or drainage. ENT: No nasal bleeding or discharge. Mucous membranes pink and moist. NECK: Trachea midline. No JVD. CARDIOVASCULAR: Regular, tachycardic with a heart rate of 110. RESPIRATORY: No accessory muscle use. Clear to auscultation. Breath sounds equal bilaterally. MUSCULOSKELETAL: The right knee is swollen when compared to the left. There are akshat in place over the anterior as well as medial lateral aspect of the right knee. Small amount of bleeding noted over the dressing on the lateral aspect, however, no significant purulent drainage noted. Positive right dorsalis pedal pulse. Patient is able to flex and extend the right ankle and move the toes on the right foot. NEUROLOGICAL: Awake and alert. No obvious cranial nerve deficits. Motor grossly within normal limits. Normal speech. Sensation is intact with medial, lateral, dorsal aspect of the right foot. PSYCHIATRIC: Appropriate mood and affect; insight and judgment normal. Data Data Last Documented VS Vital Signs Date Time Temp Pulse Resp B/P (MAP) Pulse Ox O2 Delivery O2 Flow Rate FiO2 08/14/17 07:25 98.8 111 22 120/70 (87) 100 Orders Orders Tibia/Fibula (Ap/Lat) (08/14/17 ) Hydromorphone Pf Inj (Dilaudid Pf Inj) (08/14/17 07:45) Metoclopramide Inj (Reglan Inj) (08/14/17 07:45) Sodium Chlorid 0.9% 500 Ml Inj (Ns 500 M (08/14/17 07:45) Hydromorphone Pf Inj (Dilaudid Pf Inj) (08/14/17 08:00) Hydromorphone Pf Inj (Dilaudid Pf Inj) (08/14/17 09:00) MDM Medical Decision Making Medical Screen Exam Complete: Yes Emergency Medical Condition: Yes Medical Record Reviewed: Yes Interpretation(s) Last Impressions Tibia/Fibula X-Ray 08/14/17 0000 Signed Impressions: Service Date/Time: Monday, August 14, 2017 07:43 - CONCLUSION: Internal fixation proximal tibia. Yadiel Guardado MD Differential Diagnosis Differential diagnosis includes postoperative pain, right knee effusion, hemorrhagic effusion, septic knee, postoperative infection, DVT, compartment syndrome. Narrative Course The patient's right lower extremity is neurovascularly intact, I doubt compartment syndrome. The akshat were in place, there was a small opening on the lateral aspect of the right knee where the small amount of blood was noted, but no purulent drainage noted. Two-view x-ray of the right knee was obtained and the patient was administered Dilaudid, Reglan, and IV fluids as he is allergic to morphine. X-ray reveals postoperative changes. I discussed the patient with Dr. Ross's PA, Jt, who also reviewed the x-ray. After discussion was agreed we would readdress the right knee with Xeroform, 4 x 4's, ABD pad, and Nestor wrap. The patient will be placed back in a knee immobilizer, is advised to elevate. I will write for 3 days of pain medications, he is advised to follow-up on Sunday with his orthopedist as previously scheduled. Diagnosis Primary Impression: Postoperative pain of extremity Patient Instructions: General Instructions, Narcotic given in the ED Additional Instructions: Medication as directed. Follow-up with Dr. Ross as directed. Please provide the patient a copy of his x-ray result at discharge. Elevate, ice, and dressing as discussed. Med/Other Pt SpecificInfo: Prescription(s) given Scripts Oxycodone-Acetaminophen (Percocet) 10-325 mg Tab 1 TAB PO Q6H Y for PAIN, #12 TAB 0 Refills Prov: Devante Martinez MD 08/14/17 Disposition: 01 DISCHARGE HOME Condition: Stable Devante Martinez MD August 14, 2017 07:49
[2017-08-14] MEDS ORDERED: HYDROmorphone HCL PF 2 MG/ML VIAL IV PUSH ONE (08:00)
--- NOTE | 2017-08-14 08:32 | RADRPT ---
EXAM DATE/TIME: 08/14/2017 07:43 [facility] COMPARISON: TIBIA/FIBULA RIGHT (AP/LAT), August 03, 2017, 14:57. INDICATIONS : Right proximal tibia/fibula pain after surgery. MEDICAL HISTORY : None. SURGICAL HISTORY : Right tibial plateau ORIF. ENCOUNTER: Initial ACUITY: 2 weeks PAIN SCORE: 10/10 LOCATION: Right tibia/fibula FINDINGS: Two view examination of the right tibia demonstrates recent internal fixation proximal tibia with yessica te and screws in place. Lucencies in the midshaft from hardware removal. Postsurgical changes. Lucenc y proximal tibia noted. CONCLUSION: Internal fixation proximal tibia. Yadiel Guardado MD on August 14, 2017 at 8:07 Board Certified Radiologist. This report was verified electronically.
[2017-08-14] MEDS ORDERED: PERC10TA27 PO (08:53)
[2017-08-14] MEDS ORDERED: HYDROmorphone HCL PF 0.5 MG/0.5 ML SYRINGE IV PUSH ONE (09:00)
== END 2017-08-14 09:25 | disposition home or self-care (01) ==
LOC: NEPC 07:15
DX: G89.18 Other acute postprocedural pain (principal)
CPT/HCPCS: 73590; 96374; 96376; 99284; J1170; J2765; J7040